=== PATIENT | female | born 1970 ===

== ENCOUNTER 2017-07-16 09:52 | Emergency (ER) | payer OTHER ==
[2017-07-16 09:55] VITALS: BMI 31.7
[2017-07-16 09:57] VITALS: RESP 16; TEMP 98.3
[2017-07-16 11:12] LABS: BASO % 0.5 % (0.0-2.0); EOS # 0.1 K/uL (0.0-0.7); EOS % 1.2 % (0.0-4.0); HEMOGLOBIN 13.1 g/dL (12.0-16.0); LYMPH # 1.5 K/uL (1.0-4.3); LYMPH % 28.4 % (20.0-40.0); MEAN CELL VOLUME 81.5 fl (81.0-99.0); MEAN CORPUSCULAR HEMOGLOBIN 27.6 pg (27.0-31.0); MEAN CORPUSCULAR HGB CONC 33.9 g/dL (33.0-37.0); MEAN PLATELET VOLUME 7.8 fl (7.2-11.7); MONO # 0.4 K/uL (0.0-0.8); NEUT # 3.2 K/uL (1.8-7.0); NEUT % 61.9 % (50.0-75.0); RBC 4.76 Mil/uL (3.80-5.20); RED CELL DISTRIBUTION WIDTH 13.9 % (11.5-14.5); WHITE BLOOD COUNT 5.2 K/uL (4.8-10.8)
[2017-07-16 11:22] LABS: ALB/GLOB RATIO 1.3 (1.0-2.1); ALBUMIN 4.4 g/dL (3.5-5.0); ALT/SGPT 49 U/L (9-52); AST/SGOT 28 U/L (14-36); BLOOD UREA NITROGEN 12 mg/dl (7-17); CALCIUM 9.7 mg/dL (8.4-10.2); GFR AFRICAN-AMERICAN > 60; GFR NON-AFRICAN AMERICAN > 60
--- NOTE | 2017-07-16 12:00 | ED PDOC ---
HPI: Chest Pain Time Seen by Provider: 07/16/17 11:11 Chief Complaint (Nursing): Chest Pain Chief Complaint (Provider): chest pain History Per: Patient History/Exam Limitations: no limitations Associated Symptoms: denies: Nausea, Dyspnea, Diaphoresis, Syncope Additional Complaint(s): 46yo F in ED with hx of anxiety in ER c/o of chest pain shoulder pain anc neck pain x 6 months worsened in past 3 months and now f.u with provider today. Pt was told in the past she has radicuoplathy. has not had PT. Pt aslo states that when she develops such symptoms, its intermittent preceded by palpations, sensation of "lump in throat" or difficulty swallowing and "anxiety feeling". pt finds relief to shoulder, neck area with massage pt admits left arm pain would cause some numbness/tingling to digits, but relived with use of massage. 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 no cardiac hx . pt denies worsening of pain since 3 month ago, only persistent. . - Risk Factors PE Risk Factors: Neg: Extremity Immobilization/Fx, Decreased Mobilty /Activity, Recent Major Surgery, Recent Hospitalization, Active Cancer, Previous DVT, Previous PE, CHF, Venous Stasis, Estrogen Usage, , Post-, Recent Major Trauma TAD Risk Factors: Neg: Connective Tissue Disease, Marfan's Syndrome, Art-Danlos Syndrome, Tumer's Syndrome, First Degree Relative With TAD, Sudden Onset Of Pain, Migration Of Pain Past Medical History Reviewed: Historical Data, Nursing Documentation, Vital Signs Vital Signs: Last Vital Signs Temp 98.3 F 07/16/17 09:55 Pulse 69 07/16/17 09:55 Resp 16 07/16/17 09:55 BP 128/79 07/16/17 09:55 Pulse Ox 97 07/16/17 12:11 - Medical History PMH: No Chronic Diseases - Surgical History Surgical History: Cholecystectomy - Family History Family History: States: No Known Family Hx - Home Medications Home Medications: Ambulatory Orders Medication Instructions Recorded Diphenhydramine Hydrochlorid 25 mg PO Q8 #20 cap 11/20/14 [Benadryl] - Allergies Allergies/Adverse Reactions: Allergies Allergy/AdvReac Type Severity Reaction Status Date / Time Penicillins Allergy RASH Verified 07/16/17 09:58 REZA Risk Score for UA/NSTEMI - REZA Risk Score Age > 64: NO 3 or more CAD Risk Factors: NO Known CAD (Stenosis greater than 50%): NO Aspirin use in past 7 days: NO Severe Angina: NO EKG ST changes greater than 0.5mm: NO Positive Cardiac Marker: NO REZA Score: 0 Risk %: 5% Curb-65 Severity Score - CURB-65 Severity Score Confusion: No Bun >19mg/dl (>7mmol/L): No Respiratory Rate greater than/equal to 30: No Systolic BP <90 or Diastolic BP less than/equal 60mmHg: No Age >64: No Curb-65 Score: 0 Percentage 30-day mortality: 0.6% Wells Criteria for PE - Wells Criteria for Pulmonary Embolism Clinical Signs and Symptoms of DVT: No P.E is #1 Diagnosis, or Equally Likely: No Heart Rate >100: No Immobilization at least 3 days;Surgery previous 4 weeks: No Previous, objectively diagnosed PE or DVT: No Hemoptysis: No Malignancy w/treatment within 6 months, or palliative: No Total Score: 0 Review of Systems ROS Statement: Except As Marked, All Systems Reviewed And Found Negative Cardiovascular: Positive for: Chest Pain, Palpitations Physical Exam - Reviewed Nursing Documentation Reviewed: Yes Vital Signs Reviewed: Yes - Physical Exam Appears: Positive for: Well, Non-toxic, No Acute Distress Head Exam: Positive for: ATRAUMATIC, NORMAL INSPECTION, NORMOCEPHALIC Skin: Positive for: Normal Color, Warm, DRY Eye Exam: Positive for: EOMI, Normal appearance, PERRL ENT: Positive for: Normal ENT Inspection Neck: Positive for: Normal, Painless ROM Cardiovascular/Chest: Positive for: Regular Rate, Rhythm Respiratory: Positive for: CNT, Normal Breath Sounds Gastrointestinal/Abdominal: Positive for: Normal Exam, Bowel Sounds, Soft. Negative for: Tenderness Back: Positive for: Normal Inspection Extremity: Positive for: Normal ROM. Negative for: Pedal Edema Neurologic/Psych: Positive for: Alert, Oriented - Laboratory Results Result Diagrams: 07/16/17 11:04 07/16/17 11:04 Urine dip results: Negative for: Leukocyte Esterase, Blood, Nitrate, Ketones, Glucose, Bilirubin, Protein - ECG ECG Rhythm: Positive for: Normal QRS, Normal ST Segment, Sinus Rhythm O2 Sat by Pulse Oximetry: 97 - Progress ED Course And Treament: Laboratory Results - last 72 hr 07/16/17 07/16/17 11:04 11:04 WBC 5.2 RBC 4.76 Hgb 13.1 Hct 38.8 MCV 81.5 MCH 27.6 MCHC 33.9 RDW 13.9 Plt Count 262 MPV 7.8 Neut % (Auto) 61.9 Lymph % (Auto) 28.4 [place] % (Auto) 8.0 Eos % (Auto) 1.2 Baso % (Auto) 0.5 Neut # 3.2 Lymph # 1.5 [place] # 0.4 Eos # 0.1 Baso # 0.0 Sodium 142 Potassium 3.9 Chloride 104 Carbon Dioxide 28 Anion Gap 14 BUN 12 Creatinine 0.7 Est GFR ( Amer) > 60 Est GFR (Non-Af Amer) > 60 Random Glucose 92 Calcium 9.7 Total Bilirubin 0.7 AST 28 ALT 49 Alkaline Phosphatase 116 Troponin I < 0.0120 Total Protein 7.7 Albumin 4.4 Globulin 3.3 Albumin/Globulin Ratio 1.3 Medical Decision Making Medical Decision Making: case discussed with MD Nora considering pt with prolonged CP over 6 month, advised to do D-dimer. PT however states she is unable to wait for Ddimer results. PT understands the reason for Ddimer testing and risks she assumes by leaving ER prematurely. PT with stable VS no acute pain at this time no SOB or chest pain at this time. PT with stable VS. PT will be contacted if with elevated D-dimer and advised to quickly f.u with ER. Disposition - Clinical Impression Clinical Impression: Chest pain - Patient ED Disposition Is Patient to be Admitted: No Counseled Patient/Family Regarding: Studies Performed, Diagnosis, Need For Followup, Rx Given - Disposition Disposition: Routine/Home Disposition Time: 14:10 Condition: STABLE Instructions: Chest Pain (ED)
[2017-07-16 15:59] VITALS: BP 136/70; PULSE 74; O2SAT 98
--- NOTE | 2017-07-17 11:09 | CARD ---
APPROVED REPORT EKG Measurement Heart [id number] <Conclusion> Normal sinus rhythm Normal ECG
== END 2017-07-16 13:30 | disposition home or self-care (01) ==
LOC: H.ER 09:52
DX: R07.89 Other chest pain (principal); Z88.0 Allergy status to penicillin; M79.601 Pain in right arm
CPT/HCPCS: 71046; 80053; 84484; 85025; 85378; 93005; 96374; 99282; J1885